=== PATIENT | female | born 1940 | race Caucasian/White ===

== ENCOUNTER 2016-05-06 18:36 | Inpatient (IN) | payer OTHER ==
--- NOTE | ~2016-05-06 | CN ---
Consultation Report [facility] [address] [place]. [address] NAME: QUANG DELONG : 38 STATUS : ADM IN [facility]#: [id number] AGE: 76 ADM/REG DATE : 05/06/16 MR#: [id number] REPORT SERV DATE: 05/08/16 DICTATED BY: KATE DE LEON DATE: 05/07/16 REPORT STATUS : Draft TRANSCRIBED BY: MODL DATE: 05/07/16 CARDIOLOGY CONSULTATION DATE OF CONSULTATION: REQUESTING PHYSICIAN: Ignacio Canada M.D. REASON FOR CONSULTATION: Congestive heart failure exacerbation. HISTORY OF PRESENT ILLNESS: The patient is a 76-year-old female with history of nonischemic cardiomyopathy with ejection fraction of 45% by echocardiogram November 2015. Initially referred for cardiology consultation due to abnormally echocardiogram November of 2015 and seen by my partner, Dr. Mervin Ramirez. Echocardiogram demonstrated ejection fraction of 45% with eqfhkwhr-ys-wszzcp left ventricular enlargement with mrco-bz-jdascnks mitral regurgitation. The patient on outpatient consultation reported chronic dyspnea on exertion and occasional lower extremity edema. She ultimately underwent nuclear perfusion stress test on 01/04/2016, which demonstrated no evidence of ischemia to suggest significant coronary artery disease. She has been managed medically since that time. On last office visit on 04/04/2016, she denied chest pain, or lower extremity edema. She denied orthopnea. She had no palpitations nor syncope. She reported chronic fatigue. PAST MEDICAL HISTORY: 1. Nonischemic cardiomyopathy. 2. Asthma/COPD. 3. Anxiety disorder. FAMILY HISTORY: Known for father who of complications of myocardial infarction at age 60. Mother with history of congestive heart failure who at age 85. Two sisters, one with hypertension, one with hyperlipidemia. SOCIAL HISTORY: The patient denies previous tobacco, alcohol, or illicit drug use. ALLERGIES: PENICILLIN AND CODEINE. REVIEW OF SYSTEMS: Negative for all organ systems except per the history of present illness. HOME MEDICATIONS: Per her office visit in March 2015; alprazolam 1 mg 1/2 tablet b.i.d. p.r.n., multivitamin daily, ciprofloxacin 500 mg b.i.d., carvedilol 3.125 mg b.i.d., furosemide 40 mg daily, potassium chloride 20 mEq daily, Singulair 10 mg daily and albuterol metered dose inhaler p.r.n. REVIEW OF SYSTEMS: Negative for all organ systems except per the history of present illness. Consultation Report [address] [place]. [address] NAME: QUANG DELONG : 38 STATUS : ADM IN PAT#: [id number] AGE: 76 ADM/REG DATE : 05/06/16 MR#: [id number] REPORT SERV DATE: 05/08/16 DICTATED BY: KATE DE LEON DATE: 05/07/16 REPORT STATUS : Draft TRANSCRIBED BY: MARIS DATE: 05/07/16 PHYSICAL EXAMINATION: VITALS: Pulse ranging from 53-81. Blood pressure ranging from 123/72 to 147/73, weight 89 kg, saturating 93% on 2 liters nasal cannula. GENERAL: An elderly female in no acute distress. HEENT: Normal. NECK: Supple, no JVD or bruit, normal carotid upstroke bilaterally, no thyromegaly. LUNGS: Scattered crackles. CARDIOLOGY: Regular rhythm, normal S1, S2, no thrill, no murmur, rubs or gallops, normal PMI. ABDOMEN: Bowel sounds positive, soft, nontender, and nondistended. No masses or aortic bruits. No hepatosplenomegaly or hepatojugular reflux. EXTREMITIES: No edema. Normal pulses. No clubbing or cyanosis. SKIN: Warm and dry, no significant rash. NEUROLOGIC: Alert and oriented x 3. Appropriate mood. EKG: Sinus rhythm. Left anterior fascicular block. Left bundle branch block (bifascicular block.) LABORATORY DATA: Sodium 142, potassium 3.5, chloride 102, BUN 20, creatinine 1.05, and glomerular filtration rate 59, glucose 104, magnesium 2, WBC 6.8, hemoglobin 14.8, hematocrit 44.9, platelets 148,000. Serial troponin 0.04, 0.03 and 0.05. Thyroid stimulating hormone is normal. Beta natriuretic peptide elevated at 3019. IMPRESSION: 1. Chronic systolic congestive heart failure with acute on chronic exacerbation. Intravenous diuresis ordered by the hospitalist. Echocardiogram has been ordered. Re- evaluate left ventricular systolic function. Continue current cardiac medications. Consider the addition of spironolactone and MICHAEL inhibitor. We will await results of repeat echocardiogram. 2. Altered mental status per emergency department records-defer to the hospitalist for further evaluation of the same. Thank you for the opportunity to see the patient in consultation. We will continue to follow the patient with you. ARMANDO/MARIS Yuli De Leon M.D. / [id number]
--- NOTE | ~2016-05-06 | HP ---
History And Physical [place] [id number] [facility] [place]. [address] NAME: QUANG DELONG : 38 STATUS : ADM IN [facility]#: [id number] AGE: 76 ADM/REG DATE : 05/06/16 MR#: [id number] REPORT SERV DATE: 05/06/16 DICTATED BY: YRN SHELL DATE: 05/06/16 REPORT STATUS : Draft TRANSCRIBED BY: MODL DATE: 05/06/16 DATE OF ADMISSION: 05/06/2016 HISTORY OF PRESENT ILLNESS: The patient is a 76-year-old female, who presented to [facility] with complaints of shortness of breath, bilateral lower extremity swelling, extreme weakness as well as slow reaction and slow mentation with some lethargy. She is a very poor historian and her lvyzfmgf-zn-jvl at the bedside also cannot provide much information. What mhcnczik-qb-akc told me that her revual-og-auh was very weak. She usually lives by herself but she was weaker than usually as well as she had shortness of breath and she said that she had lower extremity swelling that she had a diagnosis of congestive heart failure. The patient herself reported that she used to take Lasix for it as well as she told me that her primary care physician is Dereck Buchanan and her certified welding inspector is Dr. Gracia. The patient reported that she had pneumonia in 01/2016 then she had diagnosis of congestive heart failure. She denies any chest pain. She has shortness of breath on exertion, tiredness and weakness. She looks very sleepy and with slow mentation, but she answers questions appropriately with slowness and looks very forgetful as well. Cqqsxsgw-fh-csd reported that she was told recently that she has gallstones, initially on the triage the patient reported that she is complaining of abdominal pain, but on physical examination, she denied abdominal pain. She said she sometimes will have epigastric pain but right now, she did not have any abdominal pain. No constipation or diarrhea. No fever. REVIEW OF SYSTEMS: All 14-point review of systems done and negative except what is stated in the history of present illness. PAST MEDICAL HISTORY: I do not have any records here in the computer but the patient's daughter in [facility] reported that she has history of congestive heart failure, history of pneumonia in 01/2016, and probably hypertension and also history of gallstones. On further looking in our computer, I saw that she had an ultrasound of the abdomen done on 02/18/2016, which showed cholelithiasis with mild gallbladder wall thickening. No further evidence of cholecystitis. If it remains concern of clinical significance, HIDA scan was recommended, small quantity of upper abdominal ascites. They do not know what type of congestive heart failure the patient has. On further questioning, patient denies any heart attacks. No strokes, no diabetes. She cannot remember all of her medications that she takes. She said that she takes Lasix and the xrpwbpzl-uy-pab reported that she probably also takes Celexa and Xanax. She has also anxiety. The patient denied any history of diabetes. She denies stroke. She denies heart attack. She denies thyroid disease. SURGICAL HISTORY: She was able to remember that she had bilateral knee surgeries. FAMILY HISTORY: Both parents, mother and father, had heart attacks. ALLERGIES: SHE IS ALLERGIC TO PENICILLIN AND CODEINE. History And Physical [address] [address] NAME: QUANG DELONG : 38 STATUS : ADM IN [facility]#: [id number] AGE: 76 ADM/REG DATE : 05/06/16 MR#: [id number] REPORT SERV DATE: 05/06/16 DICTATED BY: YRN SHELL DATE: 05/06/16 REPORT STATUS : Draft TRANSCRIBED BY: MARIS DATE: 05/06/16 SOCIAL HISTORY: Nonsmoker, nondrinker. No recreational drug use. Lives by herself. According to patient's dezyfzyq-mw-zbn, she was able to take care of herself but now she is very weak, unable even to sit in bed without help. She has a son who is now not at the bedside. Pharmacy is going to clarify further patient's home medication list. PHYSICAL EXAMINATION: GENERAL: A well-nourished and well-developed female not in acute distress. Resting quietly. VITAL SIGNS: Blood pressure is 105/65, heart rate 75, respiratory rate 18. Heart rate was 76, temperature 97.6, respiratory rate 20, oxygen saturation 96% on room air. HEENT: Head atraumatic, normocephalic. Conjunctivae clear. Pupils are equal and reactive to light and accommodation. Extraocular muscles are intact. NECK: Supple. Trachea is midline. No supraclavicular or cervical lymphadenopathy. LUNGS: Diminished breath sounds bilaterally. Decreased respiratory effort. CARDIOVASCULAR: Regular rate and rhythm. Point of maximal impulse not displaced. ABDOMEN: Obese, soft. There is no tenderness on abdominal palpation in all quadrants. There is no guarding and no rebound. Extremities: No clubbing, cyanosis. 1+ edema. NEUROLOGIC: She is awake. She is alert, oriented in time, place, and person but has a slow mentation and she has difficulty to answer questions immediately but she thinks a lot before answering simple questions. Muscle strength is 5/5 bilaterally in upper and lower extremities. SKIN: Normal color, decreased turgor. LABORATORY RESULTS: BNP was 3019. Sodium 137, potassium 4.5, chloride 102, carbon dioxide 23, BUN 23, creatinine 1.16, blood sugar 107, total bilirubin was 2.2. ALT 54, AST 46, troponin is 0.04. White count 6.6, hemoglobin 16.3, hematocrit 49.3 and a platelet count 145,000. PT 17.8, INR 1.5. Urinalysis did not show any evidence of urinary infection. Chest x-ray showed venous congestion with probable interstitial edema with bibasilar atelectasis. Small amount of pleural fluid are likely present stable enlargement of the cardiac silhouette. CT of the brain without contrast, no acute CVA, no other acute intracranial abnormality. Moderate diffuse cerebral involutional changes and mild deep white matter chronic microvascular ischemic changes similar to prior examination in 2014. EKG showed sinus rhythm with a rate of 76 with a low voltage QRS with right axis deviation. Nonspecific T-waves abnormality. ASSESSMENT AND PLAN: This is a 76-year-old female, with a past medical history of congestive heart failure and questionable gallbladder disease presented to [facility] with extreme weakness, mild lethargy, and mildly altered mental status as well as with shortness of breath going on for probably several days with lower extremity swelling and mild dyspnea at home. Currently, she has not dyspneic. 1. Acute congestive heart failure exacerbation. The patient has definitely elevated BNP at 3000 and lower extremity edema. She was given Lasix 60 mg IV here. We will continue Lasix at 40 mg IV b.i.d. times two dosages and we will monitor her quickly. We will check serum troponin serially, first troponin is negative. Also, we will order echocardiogram on this patient. We consult certified welding inspector as well at [facility]. We will ask also for medical records from Dr. Buchanan. History And Physical [address] [place]. [address] NAME: QUANG DELONG : 38 STATUS : ADM IN [facility]#: [id number] AGE: 76 ADM/REG DATE : 05/06/16 MR#: [id number] REPORT SERV DATE: 05/06/16 DICTATED BY: YRN SHELL DATE: 05/06/16 REPORT STATUS : Draft TRANSCRIBED BY: MODL DATE: 05/06/16 2. Mildly altered mental status with some slowness in mentation although awake and some forgetfulness in combination with weakness. We will check serum TSH level. We will check serum B12 level. Check serum procalcitonin level as well as serum ammonia level and B12 and folate level and we will monitor patient. 3. Questionable gallbladder disease, history of cholelithiasis on ultrasound which was done in 02/2016, right now her abdomen is nontender, but I will order CT of the abdomen and pelvis without contrast to rule out any abnormality in her abdomen and according to the ultrasound report in 02/2016 they also recommended HIDA scan if there is a clinical concern. We will hold on this and see what the CT of the abdomen and pelvis without contrast will show. 4. Sugar Cane Planting Equipment Operator will be consulted as well as the family was unable to obtain home medication list since patient's pharmacy is closed, so will wait until morning to see if they can verify the patient's home medication list and everything was discussed with the patient and her daughter in-law. I will also order fractionated bilirubin and my partner will see this patient starting tomorrow morning. MG/MODL Yrn Shell M.D. / [id number] CC: Jeromy Hennessy D.O.
--- NOTE | ~2016-05-06 | DS ---
Discharge Summary [facility] [address] [place]. [address] NAME: QUANG DELONG : 38 STATUS : DIS IN PAT#: [id number] AGE: 76 ADM/REG DATE : 05/06/16 MR#: [id number] REPORT SERV DATE: 05/14/16 DICTATED BY: BARBY AYALA DATE: 05/13/16 REPORT STATUS : Draft TRANSCRIBED BY: MODL DATE: 05/13/16 ADMISSION DATE: 05/06/2016 DISCHARGE DATE: 05/13/2016 DISCHARGE DIAGNOSES: 1. Acute heart failure, systolic dysfunction. 2. Nonischemic cardiomyopathy status post cardiac cath. 3. Nonsustained ventricular tachycardia episode has been reported, Dr. Adhikari recommend outpatient AICD re-evaluation. 4. Chronic kidney disease 3, stable. 5. BMI 32. 6. Metabolic encephalopathy, improved. HISTORY OF PRESENT ILLNESS: This is a 76-year-old female patient, who came to the hospital with confusion, short of breath, and swelling. Please see dictated H and P. HOSPITAL COURSE: She was seen by Dr. De Leon, was treated on the heart failure exacerbation. Had evaluation with echocardiogram, was found to have a severe systolic dysfunction with EF 15% with moderate diastolic dysfunction with moderate pulmonary hypertension. The patient was decided to get further evaluation with a cardiac cath. Cardiac catheterization did not show any significant obstruction disease. She does have a nonischemic cardiomyopathy with worsen finding and also has had episodes of nonsustained V-tach. She is on maximum treatment for the heart failure, however, she cannot be on the MICHAEL right now because of the renal failure. Dr. Adhikari has been following this patient during this hospitalization, recommend outpatient evaluation for the AICD. Improved, remained in stable condition. Physical therapy evaluation was done and recommended rehab. The patient will be discharged to [facility] for ongoing rehab. The patient will need a close followup with truck bracer and evaluation for the AICD. She has not been asyptomatic for the nonsustained V-tach during the hospitalization. Overall had improvement, stabilized, maximized inpatient benefit, will be discharged to inpatient rehab. DISCHARGE MEDICATIONS: 1. Aspirin 325 mg once a day. 2. Lipitor 40 mg once a day. 3. Coreg 3.125 mg twice a day. 4. Lexapro 10 mg once a day. 5. Lasix 40 mg once a day, which is increased. 6. Spironolactone 25 mg once a day. 7. Norvasc was discontinued. Lisinopril and hydrochlorothiazide was discontinued. 8. Xanax 0.5 mg twice a day as needed. DISPOSITION: The patient is discharged to rehab. TIME SPENT: More than 30 minutes in discharge coordination and explanation. Discharge Summary [address] [place]. [address] NAME: QUANG DELONG : 38 STATUS : DIS IN PAT#: [id number] AGE: 76 ADM/REG DATE : 05/06/16 MR#: [id number] REPORT SERV DATE: 05/14/16 DICTATED BY: BARBY AYALA DATE: 05/13/16 REPORT STATUS : Draft TRANSCRIBED BY: MARIS DATE: 05/13/16 BRENDAN/MARIS Barby Ayala M.D. / [id number] CC: Jeromy Manning D.O.
[2016-05-06 17:51] LABS: ASCORBIC ACID (UR NOT ORDER) NEG (NEG); BILIRUBIN, URINE NEGATIVE (NEG); ER URINALYSIS TAT 0 Hrs 08 Mins; KETONE, URINE NEGATIVE (NEG); LEUKOCYTE ESTERASE(NOT OR NEG (NEG); NITRITE (URINE) NEG (NEG); WBC (NOT ORDERED) (RFLEX) 1 (0-5)
[~2016-05-06 18:36] MED LIST: ALEVE220 MG PO; FISH-EPA1000 MG PO; LIPITOR40 PO; MULTIPLE VIT PO; WELLSR150 PO; ZESTORETIC1 TA1 PO
[2016-05-06 19:46] LABS: BASOPHILS 0.2 %; BASOPHILS ABSOLUTE 0.01 10/3/uL (0.0-0.16); EOSINOPHILS 0.9 %; EOSINOPHILS ABSOLUTE 0.06 10/3/uL (0.0-0.53); ER CBC TAT 0 Hrs 00 Mins; IMMATURE GRANULOCYTES 0.3 %; IMMATURE GRANULOCYTES ABSOLUTE 0.02 10/3/uL (0.0-0.11); LYMPHOCYTES ABSOLUTE 1.32 10/3/uL (0.67-4.30); MEAN CORPUS HGB CONC 33.1 g/dL (32.0-36.0); MEAN CORPUSCULAR HEMOGLOB 28.2 pg (26.0-34.0); MONOCYTES 9.2 %; MONOCYTES ABSOLUTE 0.61 10/3/uL (0.21-1.20); NEUTROPHILS 69.4 %; NEUTROPHILS ABSOLUTE 4.58 10/3/uL (2.02-8.40); RED CELL COUNT 5.77 10/6/uL (4.0-5.6); WHITE BLOOD CELLS 6.6 10/3/uL (4.5-10.5)
[2016-05-06 19:47] LABS: HEMATOCRIT 49.3 % (36.0-48.0); HEMOGLOBIN 16.3 g/dL (12.0-16.0); MEAN CORPUSCULAR VOLUME 85.4 fL (80-100); PLATELET COUNT 145 10/3/uL (150-400); RBC DISTRIBUTION WIDTH 20.1 % (12.0-16.0)
[2016-05-06 19:57] LABS: INTERNATIONAL NORMAL RATI 1.5 UNITS (-); PROTIME (NOT ORD) 17.8 SEC (12.0-14.5)
[2016-05-06 20:04] LABS: ALBUMIN 3.5 G/DL (3.5-5.0); BUN (BLOOD UREA NITROGEN) 23 MG/DL (6-23); CALCIUM, SERUM 9.4 MG/DL (8.5-10.4); CHLORIDE, SERUM 102 MMOL/L (96-112); CO2 (CARBON DIOXIDE) 23 MMOL/L (24-34); CREATININE 1.16 MG/DL (0.55-1.02); GFR AFRICAN AMERICAN 52 ML/MIN (>=60); GFR NON AFRICAN AMERICAN 45 ML/MIN (>=60); GLUCOSE, SERUM 107 MG/DL (60-99); POTASSIUM, SERUM 4.5 MMOL/L (3.5-5.3); SGPT(ALT) 54 U/L (5-65); SODIUM, SERUM 137 MMOL/L (135-148); TOTAL PROTEIN 7.3 G/DL (6.0-8.5); TROPONIN I 0.04 NG/ML (<0.05)
[2016-05-06 20:06] LABS: A/G RATIO 0.9 (0.7-1.9); ALKALINE PHOSPHATASE 129 U/L (45-117); GLOBULIN 3.8 G/DL (2.5-4.1); SGOT(AST) 46 U/L (5-40); TOTAL BILIRUBIN 2.2 MG/DL (0-1.2)
[2016-05-06 20:55] LABS: MANUAL DIFF NO %
[2016-05-06] MEDS ORDERED: ASA5GR PO (21:02)
[2016-05-06] MEDS ORDERED: *UNABLE1 (21:03)
[2016-05-06 22:16] LABS: PROCALCITONIN <0.05 ng/mL (<0.5)
[2016-05-07 00:58] LABS: TROPONIN I 0.03 NG/ML (<0.05); ULTRASENSITIVE TSH 3.25 MCIU/ML (0.358-3.740)
[2016-05-07 01:00] LABS: FOLATE 28.9 NG/ML (>5.2)
[2016-05-07 01:53] LABS: BUN (BLOOD UREA NITROGEN) 20 MG/DL (6-23); CALCIUM, SERUM 9.1 MG/DL (8.5-10.4); CHLORIDE, SERUM 102 MMOL/L (96-112); CREATININE 1.05 MG/DL (0.55-1.02); GFR AFRICAN AMERICAN 59 ML/MIN (>=60); GFR NON AFRICAN AMERICAN 51 ML/MIN (>=60); GLUCOSE, SERUM 104 MG/DL (60-99); SODIUM, SERUM 142 MMOL/L (135-148); TOTAL BILIRUBIN 1.9 MG/DL (0-1.2)
[2016-05-07 01:59] LABS: BASOPHILS 0.1 %; BASOPHILS ABSOLUTE 0.01 10/3/uL (0.0-0.16); CO2 (CARBON DIOXIDE) 29 MMOL/L (24-34); EOSINOPHILS 1.2 %; EOSINOPHILS ABSOLUTE 0.08 10/3/uL (0.0-0.53); HEMATOCRIT 44.9 % (36.0-48.0); HEMOGLOBIN 14.8 g/dL (12.0-16.0); IMMATURE GRANULOCYTES 0.1 %; IMMATURE GRANULOCYTES ABSOLUTE 0.01 10/3/uL (0.0-0.11); LYMPHOCYTES 16.7 %; LYMPHOCYTES ABSOLUTE 1.14 10/3/uL (0.67-4.30); MEAN CORPUSCULAR HEMOGLOB 28.4 pg (26.0-34.0); MONOCYTES 8.3 %; MONOCYTES ABSOLUTE 0.57 10/3/uL (0.21-1.20); NEUTROPHILS 73.6 %; NEUTROPHILS ABSOLUTE 5.03 10/3/uL (2.02-8.40); PLATELET COUNT 148 10/3/uL (150-400); POTASSIUM, SERUM 3.5 MMOL/L (3.5-5.3); RBC DISTRIBUTION WIDTH 19.8 % (12.0-16.0); RED CELL COUNT 5.22 10/6/uL (4.0-5.6); WHITE BLOOD CELLS 6.8 10/3/uL (4.5-10.5)
[2016-05-07 02:00] LABS: MANUAL DIFF NO %; TROPONIN I 0.05 NG/ML (<0.05)
[2016-05-07 02:04] LABS: ANISOCYTOSIS 1+ (5-10/OIF) (0-5/OIF); PLATELET ESTIMATE SLT DEC (ADEQUATE)
[2016-05-07 02:07] LABS: BURR CELLS 1+ (3-10/OIF) (0-2/OIF)
[2016-05-07 12:08] LABS: GLYCOHEMOGLOBIN (HbA1c) 5.7 % (4.7-6.1)
[2016-05-07 12:57] LABS: BE (BASE EXCESS) 2.6 MEQ/L (0 +/- 2.5); CARBOXYHEMOGLOBIN 1.1 % (0-3); DEVICE NC; HEMOBLOGIN CONTENT 15.5 G/DL (12-16); INSTRUMENT SERIAL # 35151; METHEMOGLOBIN 0.5 % (0-3); O2 CONTENT 20.6 VOL% (18-24); PCO2 (CO2 TENSION) 41 MMHG (35-45); PO2 (O2 TENSION) 83 MMHG (79-93); SAMPLE Arterial; pH 7.44 (7.37-7.43)
[2016-05-07 12:58] LABS: ALLENS TEST Pos
[2016-05-07] MEDS ORDERED: NORV5 PO (13:31)
[2016-05-07] MEDS ORDERED: PRINZIDE1 TA1 PO (13:32)
[2016-05-07] MEDS ORDERED: LIPITOR40 PO (13:32)
[2016-05-07] MEDS ORDERED: L20 PO (13:32)
[2016-05-07] MEDS ORDERED: COREG3 PO (13:32)
[2016-05-07] MEDS ORDERED: LEXAPRO10 PO (13:32)
[2016-05-07] MEDS ORDERED: PROAIR HFA INH (13:32)
[2016-05-07] MEDS ORDERED: KDUR20 PO (13:33)
[2016-05-07] MEDS ORDERED: X5 PO (13:33)
[2016-05-08 01:45] LABS: BASOPHILS 0.2 %; BASOPHILS ABSOLUTE 0.01 10/3/uL (0.0-0.16); EOSINOPHILS 1.3 %; EOSINOPHILS ABSOLUTE 0.08 10/3/uL (0.0-0.53); HEMATOCRIT 42.6 % (36.0-48.0); HEMOGLOBIN 13.7 g/dL (12.0-16.0); IMMATURE GRANULOCYTES 0.2 %; IMMATURE GRANULOCYTES ABSOLUTE 0.01 10/3/uL (0.0-0.11); LYMPHOCYTES 17.7 %; LYMPHOCYTES ABSOLUTE 1.11 10/3/uL (0.67-4.30); MEAN CORPUS HGB CONC 32.2 g/dL (32.0-36.0); MEAN CORPUSCULAR HEMOGLOB 27.7 pg (26.0-34.0); MEAN CORPUSCULAR VOLUME 86.2 fL (80-100); MEAN PLATELET VOLUME 11.9 fL (9.2-13.0); MONOCYTES ABSOLUTE 0.63 10/3/uL (0.21-1.20); NEUTROPHILS 70.6 %; NEUTROPHILS ABSOLUTE 4.44 10/3/uL (2.02-8.40); PLATELET COUNT 142 10/3/uL (150-400); RED CELL COUNT 4.94 10/6/uL (4.0-5.6); WHITE BLOOD CELLS 6.3 10/3/uL (4.5-10.5)
[2016-05-08 01:50] LABS: ALBUMIN 2.9 G/DL (3.5-5.0); BUN (BLOOD UREA NITROGEN) 20 MG/DL (6-23); CALCIUM, SERUM 8.9 MG/DL (8.5-10.4); CHLORIDE, SERUM 101 MMOL/L (96-112); CO2 (CARBON DIOXIDE) 27 MMOL/L (24-34); GFR AFRICAN AMERICAN 50 ML/MIN (>=60); GFR NON AFRICAN AMERICAN 43 ML/MIN (>=60); GLUCOSE, SERUM 117 MG/DL (60-99); POTASSIUM, SERUM 3.9 MMOL/L (3.5-5.3); SGOT(AST) 24 U/L (5-40); SGPT(ALT) 37 U/L (5-65); SODIUM, SERUM 139 MMOL/L (135-148); TOTAL BILIRUBIN 1.5 MG/DL (0-1.2)
[2016-05-08 01:52] LABS: ALKALINE PHOSPHATASE 100 U/L (45-117); GLOBULIN 2.8 G/DL (2.5-4.1); TOTAL PROTEIN 5.7 G/DL (6.0-8.5)
[2016-05-08 01:53] LABS: MANUAL DIFF NO %
[2016-05-08 02:01] LABS: ANISOCYTOSIS 1+ (5-10/OIF) (0-5/OIF); OVALOCYTES 1+ (3-10/OIF) (0-2/OIF); PLATELET ESTIMATE ADQ (ADEQUATE); TEARDROP SHAPED RBCS FEW (3-10/OIF)
[2016-05-08 02:02] LABS: RBC MORPHOLOGY ABN (NORMAL)
[2016-05-09 06:14] LABS: BUN (BLOOD UREA NITROGEN) 23 MG/DL (6-23); CALCIUM, SERUM 9.5 MG/DL (8.5-10.4); CHLORIDE, SERUM 98 MMOL/L (96-112); CO2 (CARBON DIOXIDE) 30 MMOL/L (24-34); CREATININE 1.25 MG/DL (0.55-1.02); GFR AFRICAN AMERICAN 48 ML/MIN (>=60); GFR NON AFRICAN AMERICAN 41 ML/MIN (>=60); GLUCOSE, SERUM 100 MG/DL (60-99); POTASSIUM, SERUM 4.3 MMOL/L (3.5-5.3); SODIUM, SERUM 136 MMOL/L (135-148)
[2016-05-09 10:39] LABS: HEPATITIS B CORE AB IGM NON-REACTIVE (NON-REAC); HEPATITIS C ANTIBODY NON-REACTIVE (NON-REACT)
[2016-05-09 10:40] LABS: HIV COMBO NON-REACTIVE (NON REAC)
[2016-05-09 11:57] LABS: HEPATITIS B SURFACE ANTIGEN NON-REACTIVE (NON-REACT)
[2016-05-09 12:22] LABS: HEP A ANTIBODY IGM NON-REACTIVE (NON-REACT)
[2016-05-09 15:48] LABS: PHOSPHORUS, SERUM 3.1 MG/DL (2.5-4.5); POTASSIUM, SERUM 4.9 MMOL/L (3.5-5.3)
[2016-05-10 05:11] LABS: BASOPHILS 0.2 %; BASOPHILS ABSOLUTE 0.01 10/3/uL (0.0-0.16); EOSINOPHILS 0.8 %; EOSINOPHILS ABSOLUTE 0.05 10/3/uL (0.0-0.53); HEMATOCRIT 43.3 % (36.0-48.0); HEMOGLOBIN 14.1 g/dL (12.0-16.0); IMMATURE GRANULOCYTES 0.3 %; IMMATURE GRANULOCYTES ABSOLUTE 0.02 10/3/uL (0.0-0.11); LYMPHOCYTES 20.7 %; LYMPHOCYTES ABSOLUTE 1.29 10/3/uL (0.67-4.30); MEAN CORPUS HGB CONC 32.6 g/dL (32.0-36.0); MEAN CORPUSCULAR HEMOGLOB 28.7 pg (26.0-34.0); MEAN CORPUSCULAR VOLUME 88.2 fL (80-100); MEAN PLATELET VOLUME 11.4 fL (9.2-13.0); MONOCYTES 10.6 %; MONOCYTES ABSOLUTE 0.66 10/3/uL (0.21-1.20); NEUTROPHILS 67.4 %; NEUTROPHILS ABSOLUTE 4.19 10/3/uL (2.02-8.40); PLATELET COUNT 141 10/3/uL (150-400); RBC DISTRIBUTION WIDTH 19.5 % (12.0-16.0); RED CELL COUNT 4.91 10/6/uL (4.0-5.6); WHITE BLOOD CELLS 6.2 10/3/uL (4.5-10.5)
[2016-05-10 05:12] LABS: MANUAL DIFF NO %
[2016-05-10 05:36] LABS: BUN (BLOOD UREA NITROGEN) 26 MG/DL (6-23); CALCIUM, SERUM 9.5 MG/DL (8.5-10.4); CHLORIDE, SERUM 97 MMOL/L (96-112); CHOL/HDL RATIO(NOT ORDER) 2.3 (0-5); CHOLESTEROL 75 MG/DL (< 200); CO2 (CARBON DIOXIDE) 31 MMOL/L (24-34); CREATININE 1.38 MG/DL (0.55-1.02); GFR AFRICAN AMERICAN 42 ML/MIN (>=60); GFR NON AFRICAN AMERICAN 37 ML/MIN (>=60); GLUCOSE, SERUM 114 MG/DL (60-99); HDL CHOLESTEROL 33 MG/DL (> 49); LDL CHOLESTEROL 32 MG/DL (< 130); NON-HDL CHOLESTEROL 42 MG/DL (< 160); POTASSIUM, SERUM 4.6 MMOL/L (3.5-5.3); SODIUM, SERUM 135 MMOL/L (135-148); TRIGLYCERIDE 50 MG/DL (< 150)
[2016-05-11 06:38] LABS: BASOPHILS 0 %; EOSINOPHILS 0.6 %; EOSINOPHILS ABSOLUTE 0.04 10/3/uL (0.0-0.53); HEMOGLOBIN 14.5 g/dL (12.0-16.0); IMMATURE GRANULOCYTES 0.2 %; IMMATURE GRANULOCYTES ABSOLUTE 0.01 10/3/uL (0.0-0.11); LYMPHOCYTES 17.3 %; LYMPHOCYTES ABSOLUTE 1.14 10/3/uL (0.67-4.30); MEAN CORPUSCULAR HEMOGLOB 28.9 pg (26.0-34.0); MEAN CORPUSCULAR VOLUME 87.6 fL (80-100); MEAN PLATELET VOLUME 11.8 fL (9.2-13.0); MONOCYTES 10.6 %; NEUTROPHILS 71.3 %; NEUTROPHILS ABSOLUTE 4.71 10/3/uL (2.02-8.40); PLATELET COUNT 159 10/3/uL (150-400); RBC DISTRIBUTION WIDTH 19.5 % (12.0-16.0); RED CELL COUNT 5.02 10/6/uL (4.0-5.6); WHITE BLOOD CELLS 6.6 10/3/uL (4.5-10.5)
[2016-05-11 06:39] LABS: MANUAL DIFF NO %
[2016-05-11 06:43] LABS: BUN (BLOOD UREA NITROGEN) 28 MG/DL (6-23); CALCIUM, SERUM 9.5 MG/DL (8.5-10.4); CHLORIDE, SERUM 97 MMOL/L (96-112); CO2 (CARBON DIOXIDE) 27 MMOL/L (24-34); CREATININE 1.29 MG/DL (0.55-1.02); GFR AFRICAN AMERICAN 46 ML/MIN (>=60); GFR NON AFRICAN AMERICAN 40 ML/MIN (>=60); GLUCOSE, SERUM 124 MG/DL (60-99); POTASSIUM, SERUM 4.6 MMOL/L (3.5-5.3); SODIUM, SERUM 134 MMOL/L (135-148)
[2016-05-11 06:57] LABS: ANISOCYTOSIS 1+ (5-10/OIF) (0-5/OIF); PLATELET ESTIMATE ADQ (ADEQUATE); POLYCHROMASIA 1+ (2-5/OIF) (0-1/OIF)
[2016-05-12 05:31] LABS: BUN (BLOOD UREA NITROGEN) 30 MG/DL (6-23); CALCIUM, SERUM 9.5 MG/DL (8.5-10.4); CHLORIDE, SERUM 97 MMOL/L (96-112); CO2 (CARBON DIOXIDE) 28 MMOL/L (24-34); GFR AFRICAN AMERICAN 46 ML/MIN (>=60); GFR NON AFRICAN AMERICAN 39 ML/MIN (>=60); GLUCOSE, SERUM 102 MG/DL (60-99); POTASSIUM, SERUM 4.4 MMOL/L (3.5-5.3); SODIUM, SERUM 134 MMOL/L (135-148)
[2016-08-24] MEDS ORDERED: VENTOLIN HFA INH (13:15)
[2016-08-24] MEDS ORDERED: COREG25 PO (13:18)
[2016-08-24] MEDS ORDERED: MELATONIN CR3 MG PO (13:18)
[2016-08-24] MEDS ORDERED: L40 PO (13:18)
[2016-08-24] MEDS ORDERED: SINGULAIR1 PO (13:18)
[2016-08-24] MEDS ORDERED: SPIRO25 PO (13:19)
[2016-08-25] MEDS ORDERED: ULTRAM50 PO (10:37)
== END 2016-05-13 16:53 | DRG 286 ==
LOC: ER 18:36 → 5NO 21:39
PROVIDERS: Emergency Medicine; Hospitalist; Internal Medicine; Internal Medicine Cardiovascular Disease
PROC: 4A023N7 Measurement of Cardiac Sampling and Pressure, Left Heart, Percutaneous Approach (ICD-10-PCS; principal; 2016-05-10)
PROC: B2111ZZ Fluoroscopy of Multiple Coronary Arteries using Low Osmolar Contrast (ICD-10-PCS; 2016-05-10)
PROC: B2151ZZ Fluoroscopy of Left Heart using Low Osmolar Contrast (ICD-10-PCS; 2016-05-10)
DX: I13.0 Hypertensive heart and chronic kidney disease with heart failure and stage 1 through stage 4 chronic kidney disease, or unspecified chronic kidney disease (principal); I50.23 Acute on chronic systolic (congestive) heart failure; I47.2 Ventricular tachycardia; G93.41 Metabolic encephalopathy; R41.82 Altered mental status, unspecified; N18.3 Chronic kidney disease, stage 3 (moderate); E66.9 Obesity, unspecified; Z68.32 Body mass index [BMI] 32.0-32.9, adult; F32.9 Major depressive disorder, single episode, unspecified; G47.33 Obstructive sleep apnea (adult) (pediatric); K80.80 Other cholelithiasis without obstruction; I42.9 Cardiomyopathy, unspecified
CPT/HCPCS: 36600; 70450; 71010; 74176; 80048; 80053; 80061; 80074; 81001; 82140; 82247; 82607; 82746; 82805; 83036; 83735; 83880; 84100; 84132; 84145; 84443; 84484; 85025; 85610; 87040; 87389; 93005; 93458; 94640; 96374; 97110-GP; 97116-GP; 97162-GP; 97165-GO; 99152; 99285; A9270-GY; C1769; C1887; C1894; C8929; J1940; J2250; J2405; J3010; Q9957; Q9967